=== PATIENT | female | born 1940 | race African-American/Black ===

== ENCOUNTER 2024-11-16 10:09 | Emergency (ER) | payer MEDICARE, BC ==
[~2024-11-16] VITALS: Ht 167.6 cm; Wt 77.0 kg
[~2024-11-16 10:09] MED LIST: CHLO25TA27 PO; ESTR0.452 PO
[2024-11-16 10:13] VITALS: O2SAT 99
[2024-11-16] MEDS ORDERED: IBUP-2029 MT (12:44)
[2024-11-16] MEDS ORDERED: METH-653 MT (12:44)
[2024-11-16] MEDS: METHOCARBAMOL 500MG TABLET PO ONE (12:45)
[2024-11-16] MEDS: IBUPROFEN 600MG TABLET PO ONE (12:45)
[2024-11-16 12:52] VITALS: BP 148/84; PULSE 74; RESP 16; TEMP 36.83628; O2SAT 99
== END 2024-11-16 12:51 | disposition home or self-care (01) ==
LOC: ER 10:09
DX: S93.401A Sprain of unspecified ligament of right ankle, initial encounter (principal); S83.91XA Sprain of unspecified site of right knee, initial encounter; S09.90XA Unspecified injury of head, initial encounter; S70.02XA Contusion of left hip, initial encounter; Z90.710 Acquired absence of both cervix and uterus; Z88.1 Allergy status to other antibiotic agents; W10.9XXA Fall (on) (from) unspecified stairs and steps, initial encounter; Y93.89 Activity, other specified; Y92.89 Other specified places as the place of occurrence of the external cause; Y99.8 Other external cause status
CPT/HCPCS: 73502; 73562; 73610; 99284